=== PATIENT | female | born 1970 | race Caucasian/White ===

== ENCOUNTER → 2017-05-21 | Outpatient (CLI) | payer OTHER ==
--- NOTE | 2017-05-21 11:56 | KCIC ---
PELVIS W/TV History: Left adnexal mass felt on pelvic exam Comparison: None. Findings: Multiple transabdominal sonographic images of the pelvis are submitted. Uterus measured 8.4 x 4.1 x 4.7 cm. No free fluid is demonstrated. Neither ovary is seen on this portion of exam. Transvaginal ultrasound: Multiple transvaginal sonographic images of the pelvis are submitted. Endometrium measures 0.4 cm. No free fluid is demonstrated. Uterus measured 5.3 cm transverse. Right ovary measured 2.8 x 1.5 x 3 cm with normal low resistance vascularity. Left ovary measured 2.9 x 1 x 2.3 cm with normal low resistance vascularity. No discrete mass is demonstrated of either ovary. There are some small hyperechoic foci of the ovaries bilaterally probably due to small nonspecific calcifications. Impression: 1. There are some small nonspecific calcifications of the ovaries bilaterally, no discrete adnexal mass demonstrated. Electronically signed by: Miguel Keith MD (05/21/2017 11:53 AM) [id number]
--- NOTE | 2017-05-22 12:57 | RAD ---
DATE: 05/21/2017. EXAM: DIGITAL SCREEN BILAT W/CAD. HISTORY: Routine mammographic screening. COMPARISON: 07/29/2015. This study was interpreted with the benefit of Computerized Aided Detection (CAD). FINDINGS: The breast parenchyma is heterogeneously dense, which could reduce sensitivity of mammography. Breast parenchyma level C.. There is a new nodule on the MLO view at the nipple line without a clear correlate on the CC view. It is likely central. See annotations. On the left, the parenchymal pattern is stable. There is no suspicious finding. BI-RADS CATEGORY: 0 INCOMPLETE: NEEDS ADDITIONAL IMAGING EVALUATION AND/OR PRIOR MAMMOGRAMS FOR COMPARISON.. RECOMMENDED FOLLOW-UP: ADD ADDITIONAL IMAGING. Spot compression of a new nodule centrally on the right. See annotations. Sonography if necessary. PQRS compliance statement: Patient information was entered into a reminder system with a target due date (now) for the next mammogram. Mammography is a sensitive method for finding small breast cancers, but it does not detect them all and is not a substitute for careful clinical examination. A negative mammogram does not negate a clinically suspicious finding and should not result in delay in biopsying a clinically suspicious abnormality. "Our facility is accredited by the [employer] Mammography [employer]."
== END | disposition home or self-care (01) ==
LOC: KCIC US 09:39
PROVIDERS: ATTEND Family Medicine
DX: Z12.31 Encounter for screening mammogram for malignant neoplasm of breast (principal); N83.8 Other noninflammatory disorders of ovary, fallopian tube and broad ligament
CPT/HCPCS: 76830; 76856; G0202; 77067

== ENCOUNTER → 2017-06-04 | Outpatient (CLI) | payer OTHER ==
--- NOTE | 2017-06-04 15:37 | KCIC ---
DATE: 06/04/2017 EXAM: DIGITAL DIAGNOSTIC RT HISTORY: Right breast density noted on recent screening mammogram. The patient presents for additional views. COMPARISON: 05/21/2017 This study was interpreted with the benefit of Computerized Aided Detection (CAD). FINDINGS: Spot compression CC and MLO views as well as a conventional 90 degree lateral view was performed. No discrete mass is identified, however, tissue is somewhat dense in the retroareolar region. Further evaluation of this area with ultrasound is recommended. No suspicious calcifications are seen. Impression: Additional views fail to demonstrate a discrete mass. Even so, further evaluation of the retroareolar right breast with ultrasound is recommended. Right breast ultrasound: Sonographic interrogation of the retroareolar right breast was performed. There is a 4 mm x 3 mm hypoechoic mass, most suggestive of a small cyst. No internal vascularity is present. No other abnormality is seen. Breast Density: HETERO The breast parenchyma is heterogeneously dense, which could reduce sensitivity of mammography. Breast parenchyma level C. IMPRESSION: 4 mm x 3 mm cyst retroareolar right breast, likely accounting for the mammographic density on screening study. The patient may return to routine annual screening mammography. BI-RADS CATEGORY: 2 BENIGN FINDING(S) RECOMMENDED FOLLOW-UP: 12M 12 MONTH FOLLOW-UP PQRS compliance statement: Patient information was entered into a reminder system with a target due date 05/21/2018 for the next mammogram. Mammography is a sensitive method for finding small breast cancers, but it does not detect them all and is not a substitute for careful clinical examination. A negative mammogram does not negate a clinically suspicious finding and should not result in delay in biopsying a clinically suspicious abnormality. "Our facility is accredited by the [employer] Mammography [employer]."
== END | disposition home or self-care (01) ==
LOC: KCIC MAMMO 14:18
PROVIDERS: ATTEND Family Medicine
DX: N63.10 Unspecified lump in the right breast, unspecified quadrant (principal); R92.2 Inconclusive mammogram
CPT/HCPCS: 76641; G0206; 77065